=== PATIENT | female | born 1965 | race Caucasian/White ===

== ENCOUNTER 2022-12-13 23:33 | Emergency (ER) | payer OTHER ==
[~2022-12-13] VITALS: Ht 157.5 cm; Wt 81.6 kg
[2022-12-14] MEDS ORDERED: EMTRICITABINE/TENOFOVIR 1 TAB PO ONE
[2022-12-14] MEDS ORDERED: RALTEGRAVIR POTASSIUM 400 MG TABLET PO ONE
[2022-12-14] MEDS ORDERED: EMTR1TAB12 PO ×2 (00:09→23:32)
[2022-12-14] MEDS ORDERED: RALT400T PO ×2 (00:09→23:32)
[2022-12-14] MEDS ORDERED: ONDA4TAB11 PO ×2 (00:09→23:32)
[2022-12-14] MEDS ORDERED: TDAP [DIPH/PERTUSSIS/TET] 0.5 ML VIAL IM ONE (00:30)
[2022-12-14 01:01] VITALS: BP 125/70
--- NOTE | 2022-12-14 01:01 | NUR ---
Patient discharged to home in stable condition. Written and verbal after care instructions given. Patient verbalizes understanding of instruction.
== END 2022-12-14 01:01 | disposition home or self-care (01) ==
LOC: ER 23:40
DX: S61.031A Puncture wound without foreign body of right thumb without damage to nail, initial encounter (principal); Z60.2 Problems related to living alone; W46.0XXA Contact with hypodermic needle, initial encounter; Y93.89 Activity, other specified; Y92.89 Other specified places as the place of occurrence of the external cause; Y99.8 Other external cause status
CPT/HCPCS: 36415; 86706; 86803; 87340; 87806